=== PATIENT | male | born 1955 | race Two or more races ===

== ENCOUNTER 2017-04-18 16:57 | Emergency (ER) | payer SELFPAY ==
[~2017-04-18] VITALS: Ht 167.6 cm; Wt 74.8 kg
[2017-04-18 17:10] VITALS: BP 147/90
--- NOTE | 2017-04-18 23:13 | NUR ---
PT CALLED IN LOBBY AND NO ANSWER
== END 2017-04-18 23:16 | disposition left against medical advice (07) ==
LOC: ER 16:59
DX: Z53.21 Procedure and treatment not carried out due to patient leaving prior to being seen by health care provider (principal)
CPT/HCPCS: A4606; Z7610

== ENCOUNTER 2017-12-30 19:31 | Emergency (ER) | payer MEDICAID ==
[~2017-12-30] VITALS: Ht 167.6 cm; Wt 70.3 kg
--- NOTE | 2017-12-30 21:10 | NUR ---
PT IS ASLEEP, AROUSABLE TO SPEECH, VSS, NO S/S OF RESP DISTRESS. PT IS ABLE TO SAY WHERE HE IS AND SAYS HE WAS DRINKING BEERS. WILL CONTINUE TO MONITOR
[2017-12-30 21:33] LABS: BASOPHILS # (AUTO) 0.1 /CMM (0.0-0.2); BASOPHILS % (AUTO) 0.7 % (0.0-2.0); HEMATOCRIT 42 % (39-51); HEMOGLOBIN 14.3 g/dL (13.5-17.5); LYMPHOCYTES # (AUTO) 2.5 /CMM (0.8-4.8); LYMPHOCYTES % (AUTO) 36.6 % (20.0-44.0); MEAN CORPUSCULAR HGB CONC 34 g/dl (31.0-36.0); MEAN CORPUSCULAR VOLUME 91 fL (80-96); MONOCYTES # (AUTO) 0.7 /CMM (0.1-1.30); MONOCYTES % (AUTO) 10.1 % (2.0-12.0); NEUTROPHILS # (AUTO) 3.2 /CMM (1.8-8.9); NEUTROPHILS % (AUTO) 46.6 % (43.0-81.0); PLATELET COUNT (AUTO) 238 /CMM (150-450); RED BLOOD CELL COUNT(AUTO) 4.63 MIL/uL (4.5-6.0); WHITE BLOOD COUNT (AUTO) 6.9 K/uL (4.3-11.0)
[2017-12-30 21:49] LABS: ALANINE AMINOTRANSFERASE 30 U/L (12-78); ALBUMIN 3.2 g/dL (3.4-5.0); ALCOHOL, BLOOD 206 mg/dL (0-0); ALKALINE PHOSPHATASE 87 U/L (46-116); ASPARTATE AMINOTRANSFERASE 25 U/L (15-37); BILIRUBIN,DIRECT 0.1 mg/dL (0.0-0.2); BILIRUBIN,TOTAL 0.4 mg/dL (0.2-1.0); CALCIUM, SERUM 8.7 mg/dL (8.5-10.1); CARBON DIOXIDE 22 mmol/L (21-32); CHLORIDE 98 mmol/L (98-107); CREATININE 0.8 mg/dL (0.6-1.3); GLUCOSE 97 mg/dL (74-106); POTASSIUM 3.3 mmol/L (3.5-5.1); SODIUM SERUM 134 mmol/L (136-145); UREA NITROGEN, BLOOD 12 mg/dL (7-18)
[2017-12-30 21:50] LABS: ACETAMINOPHEN < 2 ug/ml (10-30); SALICYLATE 0.4 mg/dL (2.8-20.0)
--- NOTE | 2017-12-31 01:07 | NUR ---
Patient discharged to home in stable condition. Written and verbal after care instructions given. Patient verbalizes understanding of instruction. Ambulatory with a steady gait
[2017-12-31 01:08] VITALS: BP 110/66
== END 2017-12-31 01:10 | disposition home or self-care (01) ==
LOC: ER 19:33
DX: F10.129 Alcohol abuse with intoxication, unspecified (principal); Y90.7 Blood alcohol level of 200-239 mg/100 ml
CPT/HCPCS: 36415; 80048-TC; 80076-TC; 85025-TC; A4606; G0480; Z7610